=== PATIENT | female | born 1990 | race Hispanic/Latino ===

== ENCOUNTER 2020-05-23 03:36 | Inpatient (IN) | payer OTHER, MEDICAID ==
[2020-05-23 04:00] VITALS: BMI 33.6
[2020-05-23] MEDS ORDERED: hydrALAZINE 20 MG/ML VIAL SLOW IVP PRN ×3 (04:12→08:53)
[2020-05-23] MEDS ORDERED: Lidocaine 1% (PF) 30 ML VIAL SC SCH (04:38)
[2020-05-23] MEDS ORDERED: Ibuprofen 800 MG TAB PO PRN (04:38)
[2020-05-23] MEDS ORDERED: Butorphanol Tartrate 1 MG/ML VIAL SLOW IVP PRN (04:38)
[2020-05-23] MEDS ORDERED: Promethazine HCl 25 MG/ML VIAL IM PRN ×2 (04:38→06:15)
[2020-05-23] MEDS ORDERED: HYDROcodone/Acetaminophen 5/325 mg Tablet PO PRN ×4 (04:38→08:53)
[2020-05-23] MEDS ORDERED: Ondansetron PF 4 MG/2 ML Vial IVP PRN ×3 (04:38→08:53)
[2020-05-23] MEDS ORDERED: NS w/ Oxytocin 30 units 500 ML IV PRN (05:03)
[2020-05-23 05:08] LABS: Hemoglobin 12.8 g/dL (12.0-15.5); Mean Corpuscular HGB CONC 34.8 g/dL (32.0-36.0); Mean Corpuscular Hemoglobin 32.6 pg (27.0-33.0); Mean Corpuscular Volume 93.6 fl (81.6-98.3); Mean Platelet Volume 11.7 fl (7.4-10.4); Platelet Count 222 10x3/uL (150-450); RBC Distribution Width 13.3 % (11.5-14.5); Red Blood Cell (RBC) Count 3.93 10x6/uL (3.90-5.03); White Blood Cell (WBC) Count 11.2 10x3/uL (3.5-10.5)
[2020-05-23] MEDS ORDERED: Fentanyl 4 mcg/Bup 0.1% Cadd 100 ML ONE (05:23)
[2020-05-23 05:40] LABS: Hep B Surf Ag Non-Reactive S/CO (NonReactive)
[2020-05-23 05:42] LABS: Syphilis Antibody Nonreactive (Nonreactive); Syphilis Antibody Index 0.03 S/CO (<1.00 Non-Reactive)
[2020-05-23 05:59] LABS: HBSAg Index 0.22 S/CO (0-0.99)
[2020-05-23] MEDS ORDERED: Acetaminophen 325 MG TAB PO PRN (06:15)
[2020-05-23] MEDS ORDERED: diphenhydrAMINE 50 MG/ML VIAL IVP PRN (06:15)
[2020-05-23] MEDS ORDERED: Fentanyl 4 mcg/Bupivacaine 0.1% Cassette 100 ML EPIDURAL SCH (06:15)
[2020-05-23] MEDS ORDERED: ePHEDrine 50 MG/ML VIAL SLOW IVP PRN (06:15)
[2020-05-23] MEDS ORDERED: Naloxone HCl 0.4 mg/ml Vial IVP PRN ×2 (06:15)
[2020-05-23] MEDS ORDERED: Lactated Ringer's 500 ML IV PRN (06:15)
[2020-05-23] MEDS ORDERED: Communication Order-Pharmacy FS SCH (06:15)
[2020-05-23] MEDS ORDERED: NS w/ Oxytocin 30 units 500 ML ONE (06:57)
[2020-05-23] MEDS ORDERED: Lidocaine 1% (PF) 30 ML VIAL ONE (06:57)
[2020-05-23] MEDS ORDERED: Milk Of Magnesia 30 ML UDCUP PO PRN (08:53)
[2020-05-23] MEDS ORDERED: Bisacodyl 10 MG SUPP PR PRN (08:53)
[2020-05-23] MEDS ORDERED: Lanolin Ointment 7 GM TUBE TOP PRN (08:53)
[2020-05-23] MEDS ORDERED: Adacel (T-DAP) 0.5 ML SYRINGE IM ONE (08:53)
[2020-05-23] MEDS ORDERED: Ferrous Sulfate 325 MG TAB PO SCH ×2 (09:15→17:00)
[2020-05-23] MEDS ORDERED: NS w/ Oxytocin 30 units 500 ML IVPB SCH (09:15)
[2020-05-23] MEDS: Ibuprofen 800 MG TAB PO SCH ×3 (12:18→22:48)
[2020-05-23] MEDS: Prenatal Vitamin 1 TAB PO SCH (12:19)
[2020-05-23] MEDS: Docusate Calcium (SURFAK) 240 MG CAP PO SCH ×2 (12:19→22:48)
[2020-05-23] MEDS ORDERED: Benzocaine-Menthol 82.5 ML CAN TOP PRN (17:34)
[2020-05-24] MEDS: Ibuprofen 800 MG TAB PO SCH (05:18)
[2020-05-24] MEDS: Docusate Calcium (SURFAK) 240 MG CAP PO SCH (08:42)
[2020-05-24] MEDS: Prenatal Vitamin 1 TAB PO SCH (08:42)
[2020-05-24 09:03] VITALS: BP 106/56; TEMP 98.7
[2020-05-24] MEDS ORDERED: FLU VACC QS2020-21(6MOS UP)/PF 60 MCG/0.5 ML SYRINGE IM ONE (10:00)
== END 2020-05-24 12:05 | disposition home or self-care (01) | DRG 807 ==
LOC: CSHLD/OP 03:36 → CSHLD 04:50 → CSHPP 10:00
PROVIDERS: ADMIT Family Medicine; ATTEND Family Medicine
PROC: 10E0XZZ Delivery of Products of Conception, External Approach (ICD-10-PCS; principal; 2020-05-23)
PROC: 0W8NXZZ Division of Female Perineum, External Approach (ICD-10-PCS; 2020-05-23)
DX: O80 Encounter for full-term uncomplicated delivery (principal); Z37.0 Single live birth; Z3A.39 39 weeks gestation of pregnancy; Z20.822 Contact with and (suspected) exposure to COVID-19
CPT/HCPCS: 36415; 85027; 86780; 86850; 86900; 86901; 87340; 99285; J2590